=== PATIENT | female | born 1995 | race Caucasian/White ===

== ENCOUNTER 2022-03-22 23:19 | Emergency (ER) | payer SELFPAY ==
[2022-03-22] MEDS ORDERED: Sodium Chloride 0.9% 1,000 ML IV SCH (23:30)
[2022-03-23 00:24] LABS: ACETAMINOPHEN 0 ug/mL (10-30); ESTIMATED GFR 105 mL/min (>60)
[2022-03-23] MEDS ORDERED: Potassium Chloride 20 MEQ Tab.ER PO ONE (01:55)
== END 2022-03-23 03:00 | disposition home or self-care (01) ==
LOC: JD.ED 23:19
DX: E87.6 Hypokalemia (principal); F50.81 Binge eating disorder; F10.229 Alcohol dependence with intoxication, unspecified; Z20.822 Contact with and (suspected) exposure to COVID-19; Z91.018 Allergy to other foods; Z86.16 Personal history of COVID-19
CPT/HCPCS: 36415; 80053; 80143; 80179; 80306; 80307; 81025; 83735; 85025; 87635; 93005; 96360; 96361; 99284; A9270; J7030; U0002